=== PATIENT | male | born 1970 | race Hispanic/Latino ===

== ENCOUNTER 2016-08-31 15:46 | Emergency (ER) | payer SELFPAY ==
[2016-08-31 16:04] VITALS: BP 168/94
--- NOTE | 2016-08-31 16:11 | ERNOTE ---
Medical Problem HPI - Narrative Date of Service: 08/31/16 - General Chief Complaint: General Assessment Time Seen by Provider: 08/31/16 15:56 Source: patient Exam Limitations: no limitations - Immun/Allergies/Home Medications Immunizations: IMMUNIZATION HX Immunizations Up to Date Yes Allergies/Adverse Reactions: Allergies No Known Allergies Allergy (Verified 08/31/16 15:53) Home Medications: HOME MEDICATIONS Lisinopril [Zestril] 20 mg PO DAILY 11/07/15 [Last Taken 11/07/15] Metoprolol Tartrate [Lopressor] 200 mg PO BID #60 tablet 04/12/16 [Last Taken Unknown] Amox Tr/Potassium Clavulanate [Augmentin 875-125 Tablet] 875 mg PO Q12H #20 tab 08/31/16 [Last Taken Unknown] - History of Present History Narrative: Pt. comes in with c/o L maxillary sinus pain and elevated blood pressure after taking sudafed. Pt. has a hx of HTN and his BP usually runs 160 systolic but the diastolic is usually 80s according to pt. it was 94 during his BP check prior to checking in to be seen. Pt. states that he has had sinus pain and pressure for a week with a mild cough but denies fever. Pt. states that he has yellow sputum and nasal drainage. Pt. denies any sinus pain relief from the sudafed or any other prehospital treatment at this time. Review of Systems - Review of Systems Constitutional: Present: no symptoms reported. Absent: recent illness, fever, chills, malaise EYE: Present: no symptoms reported ENT: Present: nose congestion, nasal drainage. Absent: sore throat Respiratory: Present: cough. Absent: shortness of breath, orthopnea, wheezing Cardiology: Present: no symptoms reported Gastrointestinal/Abdominal: Present: no symptoms reported Musculoskeletal: Present: no symptoms reported Skin: Present: no symptoms reported Neurological: Present: no symptoms reported. Absent: headache, dizziness/light- headedness, numbness, tingling All Other Systems: All systems neg except as marked - Patient's Past Medical History Patient History - Medical: No pertinent hx Patient History - Cardiac/Respiratory: Hypertension Patient History - Cancer: No Hx of Cancer Patient History - Surgical Procedures: No surgical history - Family History Mother Family History - Medical: History Unknown - Social History Living Situations: home Alcohol Use: occasionally Drug Use: none Physical Exam - Physical Exam General Appearance: Present: wd/wn, alert, no apparent distress Eye Exam: Normal inspection: bilateral, PERRL: bilateral, EOMI: bilateral Ears, Nose, Throat: Present: hearing grossly normal, abnormal TM (L) - bulging with fluid no erythema, nasal congestion, sinus pain/drainage, normal pharynx. Absent: abnormal TM (R), pharyngeal erythema, tonsillar exudate Neck: Present: normal inspection, nontender. Absent: lymphadenopathy (R), lymphadenopathy (L) Respiratory: Present: no respiratory distress, normal breath sounds, no accessory muscle use, chest nontender, lungs clear Cardiovascular/Chest: Present: regular rate, rhythm, no murmur, normal peripheral pulses Gastrointestinal/Abdominal: Present: normal bowel sounds, nontender, nondistended, soft, no organomegaly Extremity Exam: Present: normal inspection, non-tender, no edema, normal range of motion Neurological Exam: Present: alert, oriented, normal mood/affect, no motor/ sensory deficits Skin Exam: Present: normal color, warm/dry. Absent: pallor, skin rash ED Progress - Date and Time Seen: Date and Time: 08/31/16 16:10 Feel that pt. elevated BP is likely a side effect of the sudafed and will return to normal after this wears off but will refer pt to primary to follow up and make sure that this occurs. - Vital Signs Patient's Vital Signs:: I have reviewed the patient's vital signs. Vital Signs: Vital Signs 08/31/16 08/31/16 15:49 16:03 Temperature 36.5 C Pulse Rate 77 Respiratory 12 Rate Blood Pressure 164/100 168/94 O2 Sat by Pulse 99 Oximetry - X-Ray X-Ray #1 X-Ray: sinus Interpretation: Reviewed by me X-ray Comments: no notable air fluid levels - Progress/Reassessment Chief Complaint: General Assessment Plan - Plan Plan: Sinusitis: Although pt. is without air fluid levels. L sided facial swelling and tenderness with red boggy nares, fluid behind L ear, and purulent rhinorrhea are clinical evidence of sinusitis. Will treat as such and refer pt to PCP. Departure - Departure Clinical Impression: Sinusitis, acute Qualifiers: Sinusitis location: maxillary Recurrence: non-recurrent Qualified Code(s): J01.00 - Acute maxillary sinusitis, unspecified Disposition: Home self-care Condition: Good Instructions: Sinusitis, Adult, [id number], Sinus Headache, [id number] Print Language: Citizen Of [place] Additional Instructions: Please follow up with primary provider in 2-3 days. Do not take any more Sudafed. You may use Neti pot and saline rinses for congestion. Prescriptions: Amox Tr/Potassium Clavulanate [Augmentin 875-125 Tablet] 875 mg PO Q12H #20 tab
== END 2016-08-31 17:26 | disposition home or self-care (01) ==
LOC: ER 15:46
DX: J01.00 Acute maxillary sinusitis, unspecified (principal)

== ENCOUNTER 2016-11-11 18:38 | Emergency (ER) | payer SELFPAY ==
[2016-11-11 18:47] VITALS: BP 156/102
== END 2016-11-11 18:56 | disposition home or self-care (01) ==
LOC: ER 18:38
DX: Z13.6 Encounter for screening for cardiovascular disorders (principal)